=== PATIENT | female | born 1990 | race Two or more races ===

== ENCOUNTER 2024-08-16 07:37 | Outpatient (CLI) | payer OTHER | END 2024-08-16 07:38 | disposition home or self-care (01) | LOC: PRENATAL 07:37 | PROVIDERS: ATTEND Obstetrics & Gynecology Maternal & Fetal Medicine | DX: O26.849 Uterine size-date discrepancy, unspecified trimester (principal); O28.5 Abnormal chromosomal and genetic finding on antenatal screening of mother; O24.419 Gestational diabetes mellitus in pregnancy, unspecified control; Z3A.16 16 weeks gestation of pregnancy ==

== ENCOUNTER 2024-08-16 10:39 | Outpatient (CLI) | payer OTHER | END 2024-08-16 10:42 | disposition home or self-care (01) | LOC: LAB 10:39 | PROVIDERS: ATTEND Obstetrics & Gynecology Maternal & Fetal Medicine | DX: O28.5 Abnormal chromosomal and genetic finding on antenatal screening of mother (principal); O28.3 Abnormal ultrasonic finding on antenatal screening of mother ==

== ENCOUNTER → 2024-09-15 14:15 | Outpatient (CLI) | payer OTHER ==
[~2024-09-15 14:15] MED LIST: HUMULIN N100 UNIT/2 SUBCUTANEO; INSULIN SYRING SUBCUTANEO
== END | disposition home or self-care (01) ==
LOC: PRENATAL 14:15
PROVIDERS: ATTEND Obstetrics & Gynecology Maternal & Fetal Medicine
DX: O44.00 Complete placenta previa NOS or without hemorrhage, unspecified trimester (principal); O28.5 Abnormal chromosomal and genetic finding on antenatal screening of mother; O24.419 Gestational diabetes mellitus in pregnancy, unspecified control; Z3A.21 21 weeks gestation of pregnancy

== ENCOUNTER → 2024-11-01 09:32 | Outpatient (CLI) | payer OTHER | END | disposition home or self-care (01) | LOC: PRENATAL 09:32 | PROVIDERS: ATTEND Obstetrics & Gynecology Maternal & Fetal Medicine | DX: O26.849 Uterine size-date discrepancy, unspecified trimester (principal); O28.5 Abnormal chromosomal and genetic finding on antenatal screening of mother; O24.419 Gestational diabetes mellitus in pregnancy, unspecified control; O36.60X0 Maternal care for excessive fetal growth, unspecified trimester, not applicable or unspecified; O40.1XX0 Polyhydramnios, first trimester, not applicable or unspecified; Z3A.28 28 weeks gestation of pregnancy ==

== ENCOUNTER 2024-12-08 10:19 | Outpatient (CLI) | payer OTHER | END 2024-12-08 10:21 | disposition home or self-care (01) | LOC: PRENATAL 10:19 | PROVIDERS: ATTEND Obstetrics & Gynecology Maternal & Fetal Medicine | DX: O26.849 Uterine size-date discrepancy, unspecified trimester (principal); O28.5 Abnormal chromosomal and genetic finding on antenatal screening of mother; O24.419 Gestational diabetes mellitus in pregnancy, unspecified control; O36.60X0 Maternal care for excessive fetal growth, unspecified trimester, not applicable or unspecified; O40.1XX0 Polyhydramnios, first trimester, not applicable or unspecified; Z3A.36 36 weeks gestation of pregnancy ==

== ENCOUNTER 2025-01-03 08:58 | Outpatient (CLI) | payer OTHER | END 2025-01-03 09:00 | disposition home or self-care (01) | LOC: PRENATAL 08:58 | PROVIDERS: ATTEND Obstetrics & Gynecology Maternal & Fetal Medicine | DX: O26.849 Uterine size-date discrepancy, unspecified trimester (principal); O36.8199 Decreased fetal movements, unspecified trimester, other fetus; O28.5 Abnormal chromosomal and genetic finding on antenatal screening of mother; O24.419 Gestational diabetes mellitus in pregnancy, unspecified control; O36.60X0 Maternal care for excessive fetal growth, unspecified trimester, not applicable or unspecified; Z3A.39 39 weeks gestation of pregnancy ==

== ENCOUNTER 2025-01-19 05:59 | Inpatient (IN) | payer OTHER ==
[~2025-01-19] VITALS: Ht 177.8 cm; Wt 4.1 kg
[2025-01-19] MEDS ORDERED: RINGERS SOLUTION,LACTATED 1,000 ML IV SCH (06:15)
[2025-01-19] MEDS ORDERED: CEFAZOLIN SODIUM 1,000 MG VIAL IV SCH (06:15)
[2025-01-19 06:30] VITALS: BP 134/86
[2025-01-19 07:16] LABS: BASO % 0.2 % (0.1-1.2); EOS # 0.01 (0.04-0.54); EOS % 0.1 % (0.7-7.0); LYMPH # 2.15 (1.18-3.74); LYMPH % 25.9 % (19.3-53.1); MEAN PLATELET VOLUME 10.70 fl (9.4-12.4); MONO # 0.55 (0.24-0.82); MONO % 6.6 % (4.7-12.5); NEUT # 5.54 (1.56-6.13); NEUT % 66.7 % (34.0-71.1); RED CELL DISTRIBUTION WIDTH 13.9 % (11.6-14.4)
[2025-01-19] MEDS ORDERED: PRENATAL 19 CH1 EACH (07:19)
[2025-01-19 07:22] LABS: URINE BACTERIA 3421.2 uL (0.0-1933); URINE BILIRRUBIN SMALL (NEGATIVE); URINE BLOOD NEGATIVE; URINE EPITHELIAL CELLS 62.9 uL (0.0-38.8); URINE GLUCOSE NEGATIVE (NEGATIVE); URINE KETONE TRACE (NEGATIVE); URINE LEUKOCYTE MODERATE; URINE NITRATE NEGATIVE; URINE PROTEIN NEGATIVE (NEGATIVE); URINE RBC 7.6 uL (0.0-20.8); URINE UROBILINOGEN 0.2 E.U./dl; URINE WBC 491.0 uL (0.0-23.2)
[2025-01-19 07:23] LABS: URINE APPEARANCE TURBID; URINE COLOR YELLOW
[2025-01-19 07:25] VITALS: BP 120/84
[2025-01-19 07:45] LABS: INR 0.94; URINE CAST 0.73 uL (0.0-1.40)
[2025-01-19 08:04] LABS: ALT/SGPT 15.0 U/L (12-78); AST/SGOT 14.0 U/L (15-37); BILIRUBIN TOTAL 0.57 mg/dL (0.3-1.2); BUN CREA RATIO 18.0 (7.0-25.0); CREATININE SERUM 0.66 mg/dL (0.55-1.02); GFR 103.78; GLOBULINA 3.1 G/DL (2.4-3.5); GLUCOSE FASTING 72.0 mg/dL (65-100); OSMOLALITY SERUM 280.0 MOSM/KG (275-295)
[2025-01-19 11:42] VITALS: BP 135/84
[2025-01-19 15:06] VITALS: BP 131/85
[2025-01-19] MEDS ORDERED: OXYTOCIN 10 UNITS/ML VIAL ONE ×3 (15:50→21:30)
[2025-01-19] MEDS ORDERED: ERYTHROMYCIN BASE OPHT 1GM EACH TUBE OP ONE (15:51)
[2025-01-19] MEDS ORDERED: MORPHINE SULFATE 4 MG/ML CARTRIDGE IV PRN (17:45)
[2025-01-19] MEDS ORDERED: ONDANSETRON HCL 2 MG/ML VIAL IV PRN (17:45)
[2025-01-19] MEDS ORDERED: KETOROLAC TROMETHAMINE 30 MG VIAL IV PRN (17:45)
[2025-01-19] MEDS ORDERED: OXYTOCIN 1,000 ML IV SCH (17:45)
[2025-01-19] MEDS ORDERED: SIMETHICONE 125 MG CAPSULE PO SCH (18:00)
[2025-01-19] MEDS ORDERED: METHYLERGONOVINE MALEATE 0.2 MG/ML AMPUL ONE ×3 (19:32→20:18)
[2025-01-19 20:26] LABS: BASO % 0.2 % (0.1-1.2); EOS # 0.00 (0.04-0.54); EOS % 0.0 % (0.7-7.0); LYMPH # 1.44 (1.18-3.74); LYMPH % 12.2 % (19.3-53.1); MEAN PLATELET VOLUME 10.70 fl (9.4-12.4); MONO # 0.56 (0.24-0.82); MONO % 4.7 % (4.7-12.5); NEUT # 9.74 (1.56-6.13); NEUT % 82.5 % (34.0-71.1); RED CELL DISTRIBUTION WIDTH 13.9 % (11.6-14.4)
[2025-01-19 21:52] VITALS: BP 142/88
[2025-01-20] VITALS: BP 120/81
[2025-01-20 08:47] VITALS: BP 132/81; O2SAT 99
[2025-01-20] MEDS ORDERED: NAPROXEN 500 MG TABLET PO SCH (09:00)
[2025-01-20] MEDS ORDERED: METHYLERGONOVINE MALEATE 0.2 MG TABLET PO SCH (09:00)
[2025-01-20] MEDS ORDERED: ACETAMINOPHEN WITH CODEINE 1 UDTAB TABLET PO PRN (09:00)
[2025-01-20 16:30] VITALS: BP 130/85
[2025-01-20 20:49] LABS: BASO % 0.1 % (0.1-1.2); EOS # 0.00 (0.04-0.54); EOS % 0.0 % (0.7-7.0); LYMPH # 1.12 (1.18-3.74); LYMPH % 8.8 % (19.3-53.1); MEAN PLATELET VOLUME 11.00 fl (9.4-12.4); MONO # 0.84 (0.24-0.82); MONO % 6.6 % (4.7-12.5); NEUT # 10.73 (1.56-6.13); NEUT % 84.2 % (34.0-71.1); RED CELL DISTRIBUTION WIDTH 14.1 % (11.6-14.4)
[2025-01-21] VITALS: BP 111/75
[2025-01-21 08:41] VITALS: BP 120/84
[2025-01-21 16:25] VITALS: BP 129/84
[2025-01-22] VITALS: BP 113/73
[2025-01-22 09:13] VITALS: BP 114/64
[2025-01-22] MEDS ORDERED: COLACE100 MG PO (12:37)
[2025-01-22] MEDS ORDERED: NAPROXEN500 MG PO (12:37)
== END 2025-01-22 13:21 | disposition home or self-care (01) | DRG 788 ==
LOC: LDR 05:59 → OB/GYN 05:59 → O/R 16:37 → OB/GYN 18:39 → O/R 21:02 → OB/GYN 21:04
PROVIDERS: Obstetrics & Gynecology; ADMIT Obstetrics & Gynecology; ATTEND Obstetrics & Gynecology
PROC: 4A1HXCZ Monitoring of Products of Conception, Cardiac Rate, External Approach (ICD-10-PCS; 2025-01-19)
PROC: 10D00Z1 Extraction of Products of Conception, Low, Open Approach (ICD-10-PCS; principal; 2025-01-19 18:00)
DX: O24.420 Gestational diabetes mellitus in childbirth, diet controlled (principal); O69.81X0 Labor and delivery complicated by cord around neck, without compression, not applicable or unspecified; O36.63X0 Maternal care for excessive fetal growth, third trimester, not applicable or unspecified; Z3A.38 38 weeks gestation of pregnancy; Z37.0 Single live birth